=== PATIENT | male | born 1955 | race Hispanic/Latino ===

== ENCOUNTER 2017-05-29 14:02 | Emergency (ER) | payer MEDICARE ==
[~2017-05-29] VITALS: Ht 170.2 cm; Wt 91.7 kg
[2017-05-29] MEDS ORDERED: OXYCODONE HCL10 MG PO (16:43)
[2017-05-29] MEDS ORDERED: PREDNISONE10 M1 PO (17:19)
[2017-05-29] MEDS ORDERED: SKELAXIN800 MG PO (17:19)
[2017-05-29] MEDS ORDERED: NORCO 5/3251 TABLET PO (17:19)
[2017-05-29 17:40] VITALS: BP 102/76
== END 2017-05-29 17:41 | disposition home or self-care (01) ==
LOC: EME 14:02 → EDBD 14:02 → EME 17:41
DX: M54.41 Lumbago with sciatica, right side (principal); G89.29 Other chronic pain
CPT/HCPCS: 99281; 99283; J1885